=== PATIENT | male | born 1990 | race American Indian/Alaskan Native ===

== ENCOUNTER 2021-01-17 04:26 | Emergency (ER) | payer SELFPAY ==
[2021-01-17 04:45] VITALS: BP 179/104
--- NOTE | 2021-01-17 04:47 | Emergency Department Report ---
ED General Adult HPI - General Chief complaint: Dental/Oral Stated complaint: SWOLLEN GUMS/RT TOOTH PAIN Source: patient Mode of arrival: Ambulatory Limitations: No Limitations - History of Present Illness Initial comments: Patient is a 30-year-old -[place] male with a history of morbid obesity and chronic tobacco abuse who presents to the ED with complaint of acute onset persistent painful swollen right maxillary gingiva and premolar molar toothache for the last 2 days. Patient states that he has not been able to sleep because of persistently worsening toothache. Patient denies dizziness, syncope, fever, chills, nausea, vomiting, sore throat, chest pain or shortness of breath, traumatic injury, nasal and sinus congestion, cough or abdominal pain and diarrhea. MD Complaint: Dental pain; swollen gums -: Sudden, days(s) (2) Location: mouth Radiation: non-radiation Severity scale (0 -10): 8 Quality: aching, sharp Consistency: constant Improves with: none Worsens with: eating Associated Symptoms: denies other symptoms. denies: confusion, chest pain, cough, diaphoresis, fever/chills, headaches, loss of appetite, malaise, nausea/vomiting, rash, shortness of breath, syncope, weakness, other Treatments Prior to Arrival: none - Related Data Previous Rx's Medication Instructions Recorded Last Taken Type Acetaminophen/Codeine [Tylenol 1 tab PO Q6H PRN #12 tab 08/02/18 Unknown Rx /Codeine # 3 tab] Ibuprofen [Motrin] 600 mg PO Q8H PRN #20 tablet 08/02/18 Unknown Rx traMADoL [Ultram] 50 mg PO Q6HR PRN #12 tablet 09/29/18 Unknown Rx Clindamycin [Clindamycin CAP] 300 mg PO Q8HR #60 capsule 01/17/21 Unknown Rx Ibuprofen [Motrin] 800 mg PO Q8HR PRN #30 tablet 01/17/21 Unknown Rx Allergies Allergy/AdvReac Type Severity Reaction Status Date / Time No Known Allergies Allergy Verified 08/02/18 08:15 ED Review of Systems ROS: Stated complaint: SWOLLEN GUMS/RT TOOTH PAIN Other details as noted in HPI Constitutional: denies: chills, fever Eyes: denies: eye pain, eye discharge, vision change ENT: dental pain (Right maxillary premolar molar toothache with swollen painful gums). denies: ear pain, throat pain Respiratory: denies: cough, shortness of breath, wheezing Cardiovascular: denies: chest pain, palpitations Endocrine: no symptoms reported Gastrointestinal: denies: abdominal pain, nausea, vomiting, diarrhea Genitourinary: denies: urgency, dysuria Musculoskeletal: denies: back pain, joint swelling, arthralgia Skin: denies: rash, lesions Neurological: denies: headache, weakness, paresthesias Psychiatric: denies: anxiety, depression Hematological/Lymphatic: denies: easy bleeding, easy bruising ED Past Medical Hx - Past Medical History Previous Medical History?: No - Surgical History Past Surgical History?: No - Social History Smoking Status: Current Every Day Smoker Substance Use Type: None - Medications Home Medications: Home Medications Medication Instructions Recorded Confirmed Last Taken Type Acetaminophen/Codeine [Tylenol 1 tab PO Q6H PRN #12 tab 08/02/18 Unknown Rx /Codeine # 3 tab] Ibuprofen [Motrin] 600 mg PO Q8H PRN #20 tablet 08/02/18 Unknown Rx traMADoL [Ultram] 50 mg PO Q6HR PRN #12 tablet 09/29/18 Unknown Rx Clindamycin [Clindamycin CAP] 300 mg PO Q8HR #60 capsule 01/17/21 Unknown Rx Ibuprofen [Motrin] 800 mg PO Q8HR PRN #30 tablet 01/17/21 Unknown Rx ED Physical Exam - General Limitations: No Limitations General appearance: alert, in no apparent distress, obese - Head Head exam: Present: atraumatic, normocephalic, normal inspection - Eye Eye exam: Present: normal appearance, PERRL, EOMI Pupils: Present: normal accommodation - ENT ENT exam: Present: mucous membranes moist, TM's normal bilaterally, normal external ear exam, other (Swollen, severely tender right maxillary gingiva with severely tender premolar and molar teeth) - Neck Neck exam: Present: normal inspection, full ROM. Absent: tenderness - Respiratory Respiratory exam: Present: normal lung sounds bilaterally. Absent: respiratory distress, wheezes, rhonchi, chest wall tenderness, decreased breath sounds, prolonged expiratory - Cardiovascular Cardiovascular Exam: Present: regular rate, normal rhythm, normal heart sounds. Absent: systolic murmur, diastolic murmur, rubs, gallop - GI/Abdominal GI/Abdominal exam: Present: soft, normal bowel sounds. Absent: distended, tenderness, guarding, hyperactive bowel sounds, hypoactive bowel sounds - Extremities Exam Extremities exam: Present: normal inspection, full ROM, normal capillary refill. Absent: tenderness, pedal edema, joint swelling - Back Exam Back exam: Present: normal inspection, full ROM. Absent: tenderness, CVA tenderness (R), CVA tenderness (L), muscle spasm, paraspinal tenderness, vertebral tenderness - Neurological Exam Neurological exam: Present: alert, oriented X3, CN II-XII intact, normal gait, reflexes normal - Psychiatric Psychiatric exam: Present: normal affect, normal mood - Skin Skin exam: Present: warm, dry, intact, normal color. Absent: rash ED Medical Decision Making - Medical Decision Making This is a 30-year-old -Eth[place]ian male with a history of morbid obesity and chronic tobacco abuse who presents to the ED with complaint of acute onset persistent painful swollen right maxillary gingiva and premolar molar toothache for the last 2 days. Patient states that he has not been able to sleep because of persistently worsening toothache. In the ED, patient is alert and oriented x3 and is not in any distress. Patient was discharged home on pain medications and antibiotics based on the physical exam findings of suspected acute gingivitis and dental abscess. Patient was advised to follow-up with a dentist in 5 to 7 days for reevaluation or return to the ED immediately if symptoms get worse. - Differential Diagnosis Dental abscess; gingivitis; dental caries; Critical care attestation.: If time is entered above; I have spent that time in minutes in the direct care of this critically ill patient, excluding procedure time. ED Disposition Clinical Impression: Dental abscess, Acute gingivitis, Dental caries Disposition: TO HOME OR SELFCARE Is pt being admited?: No Does the pt Need Aspirin: No Condition: Stable Instructions: Dental Abscess, [id number], Trench Mouth Additional Instructions: Take medication with food, drink plenty of fluids and follow-up with your primary care physician or dentist in 5 to 7 days for reevaluation. Return to the ED immediately if symptoms get worse. Prescriptions: Clindamycin [Clindamycin CAP] 300 mg PO Q8HR #60 capsule Ibuprofen [Motrin] 800 mg PO Q8HR PRN #30 tablet PRN Reason: Pain , Severe (7-10) Referrals: [facility] [Outside] - 7-10 days Time of Disposition: 04:47 Print Language: MICRONESIAN
== END 2021-01-17 06:00 | disposition home or self-care (01) ==
LOC: ED 04:26
DX: K04.7 Periapical abscess without sinus (principal); K05.00 Acute gingivitis, plaque induced; K02.9 Dental caries, unspecified; F17.200 Nicotine dependence, unspecified, uncomplicated; Z79.899 Other long term (current) drug therapy
CPT/HCPCS: 99282

== ENCOUNTER 2021-05-31 08:06 | Emergency (ER) | payer SELFPAY ==
--- NOTE | 2021-05-31 10:33 | Emergency Department Report ---
ED General Adult HPI - General Chief complaint: Chest Pain Stated complaint: SLIGHT PAIN DISCOMFORT LT ARM Time Seen by Provider: 05/31/21 10:26 Source: patient Mode of arrival: Ambulatory Limitations: No Limitations - History of Present Illness Initial comments: 31-year-old male presents to the ER today with complaints of left upper back, left shoulder pain, chest tightness and shortness of breath. Patient states that he was diagnosed with Covid 3 weeks ago. He states that he had a repeat COVID-19 test this past Friday and it was negative. Patient states that he is concerned because about 1 week and ago he noticed that he has been having interm ittent pain in his left upper back into his left shoulder and sometimes into his left arm, which he describes as "sore" and he has been having intermittent chest tightness mainly when he lays backwards and also intermittent shortness of breath. He states that the symptoms have been triggering him to feel anxious. He states that he is also been having trouble sleeping. He denies any pleuritic pain. He states that when he was first diagnosed with Covid he mainly had just generalized body aches and a cough which has since resolved. He did have fever when he first got sick but this has also since resolved. He states that he did not have any chest tightness or shortness of breath when he was first diagnosed with Covid. Patient states that he does smoke. He denies any lower extremity swelling or calf pain. He reports no GI or symptoms. He denies any underlying medical conditions. Patient blood pressure was noted to be elevated in triage. He states that he was told once about a year ago when he came to the ER his blood pressure was elevated but he never followed up to have it monitored by her PCP. He denies any family history of heart disease. He denies any risk factors for PE or DVT. Complaint: Chest tightness/Left upper back/shoulder pain/SOB -: week(s) (1) - Related Data Previous Rx's Medication Instructions Recorded Last Taken Type Acetaminophen/Codeine [Tylenol 1 tab PO Q6H PRN #12 tab 08/02/18 Unknown Rx /Codeine # 3 tab] Ibuprofen [Motrin] 600 mg PO Q8H PRN #20 tablet 08/02/18 Unknown Rx traMADoL [Ultram] 50 mg PO Q6HR PRN #12 tablet 09/29/18 Unknown Rx Clindamycin [Clindamycin CAP] 300 mg PO Q8HR #60 capsule 01/17/21 Unknown Rx Amlodipine Besylate [Norvasc] 5 mg PO DAILY #30 tablet 05/31/21 Unknown Rx Ibuprofen [Motrin 800 MG tab] 800 mg PO Q8HR PRN #30 tablet 05/31/21 Unknown Rx Allergies Allergy/AdvReac Type Severity Reaction Status Date / Time No Known Allergies Allergy Verified 05/31/21 08:21 ED Review of Systems ROS: Stated complaint: SLIGHT PAIN DISCOMFORT LT ARM Other details as noted in HPI Comment: All other systems reviewed and negative Constitutional: denies: chills, fever Eyes: denies: eye pain, eye discharge, vision change ENT: denies: ear pain, throat pain Respiratory: shortness of breath. denies: cough, orthopnea, SOB with exertion, SOB at rest, wheezing Cardiovascular: chest pain. denies: palpitations, dyspnea on exertion, orthopnea, edema, syncope, paroxysmal nocturnal dyspnea Endocrine: no symptoms reported Gastrointestinal: denies: abdominal pain, nausea, vomiting, diarrhea, constipation, hematemesis, melena, hematochezia Genitourinary: denies: urgency, dysuria, frequency, hematuria, discharge, testicular pain, testicular mass Musculoskeletal: back pain, myalgia Skin: denies: rash, lesions, change in color, change in hair/nails, pruritus Neurological: denies: headache, weakness, paresthesias, confusion, abnormal g ait, vertigo Psychiatric: anxiety. denies: depression, auditory hallucinations, visual hallucinations, homicidal thoughts, suicidal thoughts Hematological/Lymphatic: denies: easy bleeding, easy bruising, swollen glands ED Past Medical Hx - Past Medical History Previous Medical History?: No - Surgical History Past Surgical History?: No - Social History Smoking Status: Current Every Day Smoker Substance Use Type: None - Medications Home Medications: Home Medications Medication Instructions Recorded Confirmed Last Taken Type Acetaminophen/Codeine [Tylenol 1 tab PO Q6H PRN #12 tab 08/02/18 Unknown Rx /Codeine # 3 tab] Ibuprofen [Motrin] 600 mg PO Q8H PRN #20 tablet 08/02/18 Unknown Rx traMADoL [Ultram] 50 mg PO Q6HR PRN #12 tablet 09/29/18 Unknown Rx Clindamycin [Clindamycin CAP] 300 mg PO Q8HR #60 capsule 01/17/21 Unknown Rx Amlodipine Besylate [Norvasc] 5 mg PO DAILY #30 tablet 05/31/21 Unknown Rx Ibuprofen [Motrin 800 MG tab] 800 mg PO Q8HR PRN #30 tablet 05/31/21 Unknown Rx ED Physical Exam - General Limitations: No Limitations General appearance: alert, in no apparent distress - Head Head exam: Present: atraumatic, normocephalic, normal inspection - Eye Eye exam: Present: normal appearance, PERRL, EOMI Pupils: Present: normal accommodation - Neck Neck exam: Present: normal inspection, full ROM - Respiratory Respiratory exam: Present: normal lung sounds bilaterally, chest wall tenderness (Mild left upper and right upper chest wall ttp ). Absent: respiratory distress, wheezes, rales, rhonchi - Cardiovascular Cardiovascular Exam: Present: regular rate, normal rhythm, normal heart sounds - GI/Abdominal GI/Abdominal exam: Present: soft. Absent: tenderness, guarding, rebound - Extremities Exam Extremities exam: Present: normal inspection, full ROM. Absent: pedal edema, joint swelling - Expanded Upper Extremity Exam Left Shoulder Exam: Present: normal inspection, full ROM. Absent: tenderness, swelling, abrasion, laceration - Back Exam Back exam: Present: normal inspection, full ROM, tenderness (Mild ttp left trapezius and soft tissue/muscle ttp left upper back. No midline ttp ) - Neurological Exam Neurological exam: Present: alert, oriented X3, CN II-XII intact, normal gait. Absent: motor sensory deficit - Psychiatric Psychiatric exam: Present: normal affect, normal mood - Skin Skin exam: Present: intact ED Course Vital Signs 05/31/21 05/31/21 08:23 12:46 Temperature 98.4 F Pulse Rate 87 78 Respiratory 18 20 Rate Blood Pressure 152/112 Blood Pressure 163/95 [Right] O2 Sat by Pulse 98 100 Oximetry ED Medical Decision Making - Lab Data Result diagrams: 05/31/21 11:24 05/31/21 11:24 - EKG Data EKG shows normal: sinus rhythm Rate: normal (110) - EKG Data Interpretation: no acute changes - Radiology Data Radiology results: report reviewed Patient: DAE THOMAS MR#: [id number] 0 : 1990 Acct:[id number] Age/Sex: 31 / M ADM Date: 05/31/21 Loc: ED Attending Dr: Ordering Physician: GANESH CURRIE Date of Service: 05/31/21 Procedure(s): XR chest routine 2V Accession Number(s): [id number] cc: AGNESH CURRIE Fluoro Time In Minutes: CHEST 2 VIEWS INDICATION: Chest Pain/SOB. COMPARISON: None FINDINGS: Support devices: None. Heart: Within normal limits. Lungs/pleura: No acute air space or interstitial disease. No pneumothorax. Additional findings: None. IMPRESSION: No acute findings. Normal chest x-ray. Signer Name: Aristeo Bass Jr, MD Signed: 05/31/2021 10:50 AM Workstation Name: [id number] Transcribed By: TTR Dictated By: ARISTEO BASS JR, MD Electronically Authenticated By: ARISTEO BASS JR, MD Signed Date/Time: 05/31/21 1050 DD/ 1049 - Medical Decision Making All labs reviewed -- CBC and CMP unremarkable. Trop negative. EKG showed no acute ischemic changes/STEMI or significant dysrhthmias. cxr shows nothing acute. Pt is well appearing, he is not toxic or ill appearing and he is not in any pain or respiratory distress. Discussed all labs and imaging results with patient. Patient has heart score of 1 and PERC score of 0. Exact cause of his symptoms at this time unclear. His history, exam, diagnostic testing and current condition do not suggest that this patient is having acute myocardial infarction, significant arrhythmia, unstable angina, pulmonary embolism, pneumothorax, severe pneumonia, sepsis or other significant pathology that would warrant further testing, continued ED treatment, admission or cardiology or other specialist consultation at this time. His repeat BP was noted to be elevated. Pt does not have hx of HTN but he does admit that he has been told that his BP was elevated in past. I will start patient on low dose norvasc and Recommend close follow up with PCP. He expressed understanding of instructions and agreed with plan. He understands to return to ED if worse or if anything changes. Critical care attestation.: If time is entered above; I have spent that time in minutes in the direct care of this critically ill patient, excluding procedure time. ED Disposition Clinical Impression: Nonspecific chest pain, Chest wall pain, Upper back pain, Anxiety reaction, Elevated blood pressure reading Disposition: HOME / SELF CARE / HOMELESS Is pt being admited?: No Does the pt Need Aspirin: No Condition: Stable Instructions: Chest Wall Pain, [id number], Nonspecific Chest Pain, Adult, Hypertension, Adult, [id number], Musculoskeletal Pain, Managing Anxiety, Adult Additional Instructions: I recommend that you take the ibuprofen as prescribed. Take the norvasc as prescribed. I Recommend that you follow-up closely with your primary care doctor listed on your discharge instructions for continued monitoring of your Blood pressure. Return to the ER if your symptoms changes or worsens in any way. Prescriptions: Ibuprofen [Motrin 800 MG tab] 800 mg PO Q8HR PRN #30 tablet PRN Reason: Pain , Severe (7-10) Amlodipine Besylate [Norvasc] 5 mg PO DAILY #30 tablet Referrals: [facility] [Provider Group] - 3-5 Days (Primary care physician ) Time of Disposition: 12:46 HEART Score - HEART Score History: Slightly suspicious EKG: Normal Age: < 45 Risk factors: 1-2 risk factors Troponin: Troponin T < 0.010 ng/mL (0.00-0.029) 05/31/21 11:24 Troponin: < normal limit HEART Score: 1 - Critical Actions Critical Actions: 0-3 pts:0.9-1.7%risk of adverse cardiac event.Candidate for discharge
--- NOTE | 2021-05-31 10:57 | XRay Report ---
CHEST 2 VIEWS INDICATION: Chest Pain/SOB. COMPARISON: None FINDINGS: Support devices: None. Heart: Within normal limits. Lungs/pleura: No acute air space or interstitial disease. No pneumothorax. Additional findings: None. IMPRESSION: No acute findings. Normal chest x-ray. Signer Name: Jaylen Knapp Jr, MD Signed: 05/31/2021 10:50 AM Workstation Name: [id number]
[2021-05-31 11:49] LABS: Basophils % (Auto) 0.3 % (0.0-1.8); Eosinophils % (Auto) 0.2 % (0.0-4.3); Hematocrit 44.9 % (35.5-45.6); Hemoglobin 14.8 gm/dl (11.8-15.2); Lymphocytes # (Auto) 1.9 K/mm3 (1.2-5.4); Lymphocytes % (Auto) 15.2 % (13.4-35.0); Mean Corpuscular HGB Conc 33 % (32-34); Mean Corpuscular Volume 89 fl (84-94); Monocytes # (Auto) 0.8 K/mm3 (0.0-0.8); Monocytes % (Auto) 6.4 % (0.0-7.3); Platelet Count 261 K/mm3 (140-440); Red Blood Count 5.06 M/mm3 (3.65-5.03); Red Cell Distribution Width 14.8 % (13.2-15.2)
[2021-05-31 12:15] LABS: Albumin 4.3 g/dL (3.9-5); BUN/Creatinine Ratio 7; Blood Urea Nitrogen 6 mg/dL (9-20); Calcium 9.7 mg/dL (8.4-10.2); Hemolysis Index 6
[2021-05-31 12:16] LABS: Alanine Aminotransferase < 5 units/L (7-56)
[2021-05-31 12:48] VITALS: BP 163/95
== END 2021-05-31 13:33 | disposition home or self-care (01) ==
LOC: ED 08:06
DX: M54.6 Pain in thoracic spine (principal); R07.89 Other chest pain; F41.1 Generalized anxiety disorder; R03.0 Elevated blood-pressure reading, without diagnosis of hypertension; F17.200 Nicotine dependence, unspecified, uncomplicated; Z79.899 Other long term (current) drug therapy
CPT/HCPCS: 36415; 71046; 80053; 84484; 85025; 93005; 99283

== ENCOUNTER 2021-06-06 22:41 | Emergency (ER) | payer SELFPAY ==
[2021-06-06 23:10] VITALS: BP 173/96
--- NOTE | 2021-06-07 01:13 | Emergency Department Report ---
ED Neck Pain/Injury HPI - General Chief Complaint: Extremity Injury, Upper Stated Complaint: L SHOULDER/ARM PAIN DIZZY Time Seen by Provider: 06/07/21 00:54 Mode of arrival: Ambulatory Limitations: No Limitations - History of Present Illness Initial Comments: 31-year-old -[place] male presents emerge department planing complaining of a 3-1/2-week history of left neck pain that radiates to the shoulder and across the chest and associated with occasional shortness of breath. Reports having coronavirus about 3 to 4 weeks ago as well which is now resolved during that time he states he was sleeping in awkward position on the left side and thinks that that is the reason for having the neck pain but is unsure of with discomfort to the chest and shortness of breath off and on has been been coming and states seems to be only present when he has a shoulder pain episode flareup reports no hemoptysis no hemoptysis no hematemesis hematochezia, no nausea, no vomiting, no wheezing no palpitations MD Complaint: neck pain, neck injury -: Gradual, week(s) (3) Place: home Radiation: left shoulder Severity: mild Quality: dull Consistency: constant Improves With: none Worsens With: none Context: fall Associated Symptoms: none Treatments Prior to Arrival: none - Related Data Previous Rx's Medication Instructions Recorded Last Taken Type Acetaminophen/Codeine [Tylenol 1 tab PO Q6H PRN #12 tab 08/02/18 Unknown Rx /Codeine # 3 tab] Ibuprofen [Motrin] 600 mg PO Q8H PRN #20 tablet 08/02/18 Unknown Rx traMADoL [Ultram] 50 mg PO Q6HR PRN #12 tablet 09/29/18 Unknown Rx Clindamycin [Clindamycin CAP] 300 mg PO Q8HR #60 capsule 01/17/21 Unknown Rx Amlodipine Besylate [Norvasc] 5 mg PO DAILY #30 tablet 05/31/21 Unknown Rx Ibuprofen [Motrin 800 MG tab] 800 mg PO Q8HR PRN #30 tablet 05/31/21 Unknown Rx Ketorolac [Toradol] 10 mg PO Q6H PRN #14 tablet 06/07/21 Unknown Rx Allergies Allergy/AdvReac Type Severity Reaction Status Date / Time No Known Allergies Allergy Verified 05/31/21 08:21 ED Review of Systems ROS: Stated complaint: L SHOULDER/ARM PAIN DIZZY Other details as noted in HPI Comment: All other systems reviewed and negative ED Past Medical Hx - Past Medical History Previous Medical History?: Yes - Surgical History Past Surgical History?: No - Social History Smoking Status: Current Every Day Smoker Substance Use Type: None - Medications Home Medications: Home Medications Medication Instructions Recorded Confirmed Last Taken Type Acetaminophen/Codeine [Tylenol 1 tab PO Q6H PRN #12 tab 08/02/18 Unknown Rx /Codeine # 3 tab] Ibuprofen [Motrin] 600 mg PO Q8H PRN #20 tablet 08/02/18 Unknown Rx traMADoL [Ultram] 50 mg PO Q6HR PRN #12 tablet 09/29/18 Unknown Rx Clindamycin [Clindamycin CAP] 300 mg PO Q8HR #60 capsule 01/17/21 Unknown Rx Amlodipine Besylate [Norvasc] 5 mg PO DAILY #30 tablet 05/31/21 Unknown Rx Ibuprofen [Motrin 800 MG tab] 800 mg PO Q8HR PRN #30 tablet 05/31/21 Unknown Rx Ketorolac [Toradol] 10 mg PO Q6H PRN #14 tablet 06/07/21 Unknown Rx ED Physical Exam - General Limitations: No Limitations General appearance: alert, in no apparent distress - Head Head exam: Present: atraumatic, normocephalic - Eye Eye exam: Present: normal appearance, PERRL Pupils: Present: normal accommodation - ENT ENT exam: Present: mucous membranes moist - Neck Neck exam: Present: normal inspection, tenderness, full ROM. Absent: meningismus, lymphadenopathy, thyromegaly, other - Respiratory Respiratory exam: Present: normal lung sounds bilaterally. Absent: respiratory distress - Cardiovascular Cardiovascular Exam: Present: regular rate, normal rhythm. Absent: systolic murmur, diastolic murmur, rubs, gallop - GI/Abdominal GI/Abdominal exam: Present: soft, normal bowel sounds - Rectal Rectal exam: Present: deferred - Extremities Exam Extremities exam: Present: normal inspection, normal capillary refill - Back Exam Back exam: Present: normal inspection. Absent: CVA tenderness (R), CVA tenderness (L) - Neurological Exam Neurological exam: Present: alert, oriented X3, CN II-XII intact, normal gait - Psychiatric Psychiatric exam: Present: normal affect, normal mood. Absent: anxious, manic - Skin Skin exam: Present: warm, dry, intact, normal color. Absent: rash, cyanosis, diaphoretic, erythema ED Course Vital Signs 06/06/21 23:09 Temperature 98.5 F Pulse Rate 77 Respiratory 16 Rate Blood Pressure 173/96 O2 Sat by Pulse 99 Oximetry Critical care attestation.: If time is entered above; I have spent that time in minutes in the direct care of this critically ill patient, excluding procedure time. ED Disposition Clinical Impression: Shoulder pain, Chest wall pain, Nonspecific chest pain Disposition: HOME / SELF CARE / HOMELESS Is pt being admited?: No Does the pt Need Aspirin: No Condition: Stable Instructions: Shoulder Pain, How to Use Cold Therapy, [id number], Nonspecific Chest Pain, Adult Additional Instructions: You were evaluated emergency department today for chest pain and shoulder pain. Your evaluation has shown no medicals conditions requiring emergent intervention at this time, however recommend that you follow-up with your primary care physician or your box repairer soon as possible for further testing as an outpatient. Please schedule an appointment for follow-up with your primary care physician as soon as possible. Return to emergency department if you expands worsening uncontrolled chest pain, shortness of breath, lightheadedness, feeling faint, nausea, vomiting or any other concerning symptoms. Prescriptions: Ketorolac [Toradol] 10 mg PO Q6H PRN #14 tablet PRN Reason: Pain Referrals: MERYL BRANDT MD [Staff Physician] - 2-3 Days (Please follow-up with cardiology for reevaluation and exercise stress test)
== END 2021-06-07 01:45 | disposition home or self-care (01) ==
LOC: ED 22:41
DX: M25.512 Pain in left shoulder (principal); M54.2 Cervicalgia; R06.02 Shortness of breath; R07.89 Other chest pain; F17.200 Nicotine dependence, unspecified, uncomplicated; Z79.899 Other long term (current) drug therapy
CPT/HCPCS: 99281

== ENCOUNTER 2021-06-24 23:32 | Emergency (ER) | payer SELFPAY ==
[2021-06-25] MEDS ORDERED: ASPIRIN 325 MG TAB PO ONE (00:07)
--- NOTE | 2021-06-25 00:12 | Event Note ---
ED Screening Note Date of service: 06/25/21 Time: 00:08 ED Screening Note: Patient is a 31-year-old -[place] male with a history of tobacco abuse and hypertension who presents to the ED with complaint of acute onset persistent left-sided chest pain, shortness of breath, elevated blood pressure, persistent palpitations, lightheadedness and dizziness for the last 2 hours. Patient states that he was seated at home watching football and got up to go to the bedroom and while walking he started feeling lightheaded, nauseous and dizziness and palpitations with left-sided chest pain and shortness of breath. Patient states that he takes amlodipine 5 mg daily for hypertension. Patient denies illegal drug use, headache, abdominal pain, vomiting, diarrhea, traumatic injury, fall, change in vision, seizures or syncope, fever and chills or cough. This initial assessment/diagnostic orders/clinical plan/treatment(s) is/are subject to change based on patients health status, clinical progression and re- assessment by fellow clinical providers in the ED. Further treatment and workup at subsequent clinical providers discretion. Patient/guardian urged not to elope from the ED as their condition may be serious if not clinically assessed and managed. Initial orders include: CBC, CMP, EKG, chest x-ray, troponin, magnesium, TSH, D-dimer
--- NOTE | 2021-06-25 00:45 | XRay Report ---
CHEST 2 VIEWS INDICATION / CLINICAL INFORMATION: CHEST PAIN, DYSPNEA, ELEVATED BP STUDY TIME: 28 COMPARISON: 05/31/2021 FINDINGS: SUPPORT DEVICES: None. HEART / MEDIASTINUM: No significant abnormality. LUNGS / PLEURA: No significant pulmonary or pleural abnormality. No pneumothorax. ADDITIONAL FINDINGS: No significant additional findings. Signer Name: Leander Justice MD Signed: 06/25/2021 12:40 AM Workstation Name: [id number]
[2021-06-25] MEDS ORDERED: IBUPROFEN 400 MG TAB PO ONE ×2 (00:52→04:00)
[2021-06-25] MEDS ORDERED: ACETAMINOPHEN 325 MG TAB PO ONE (00:52)
[2021-06-25] MEDS ORDERED: ALPRAZolam 0.5 MG TAB PO ONE (00:52)
--- NOTE | 2021-06-25 00:53 | Emergency Department Report ---
ED General Adult HPI - General Chief complaint: Chest Pain Stated complaint: Left-sided chest wall pain, lightheadedness, heart racing PUI?: No Time Seen by Provider: 06/25/21 00:38 Source: patient, RN notes reviewed, old records reviewed Mode of arrival: Ambulatory Limitations: No Limitations - History of Present Illness Initial comments: The patient was evaluated in the emergency department for symptoms described in the history of present illness. He/she was evaluated in the context of the global COVID-19 pandemic, which necessitated consideration that the patient might be at risk for infection with the virus that causes COVID-19. Institutional protocols and algorithms that pertain to the evaluation of patients at risk for COVID-19 are in a state of rapid change based on information released by regulatory bodies including the CDC and federal and state organizations. These policies and algorithms were followed during the patient's care in the emergency department. Please note that these policies, procedures and recommendations changed on a rapid basis. The patient is a 31-year-old gentleman. He has a history of obesity, body mass index of 40, and hypertension. He presents to the ER today with a complaint of nontraumatic left-sided chest wall pain. The pain involves his left axilla, and left shoulder. He also describes lightheadedness. The patient denies headache, midline neck pain, abdominal pain. The patient denies vomiting and diaphoresis. The patient has not received his COVID-19 vaccination. The patient reports he was diagnosed with COVID-19 about 6 weeks ago. The patient denies leg pain, leg swelling, immobilization. The patient denies travel, surgery, and personal and family history of DVT and pulmonary embolism. No recent aspirin consumption. No personal family history of DVT, PE, or CAD. He also describes lightheadedness, but has not lost consciousness or passed out. -: Gradual, hour(s) Location: chest Radiation: non-radiation Severity scale (0 -10): 4 Quality: aching Consistency: constant Improves with: rest Worsens with: movement, other (Palpation) - Related Data Previous Rx's Medication Instructions Recorded Last Taken Type Ibuprofen [Motrin] 600 mg PO Q8H PRN #20 tablet 08/02/18 Unknown Rx Ibuprofen [Motrin 800 MG tab] 800 mg PO Q8HR PRN #30 tablet 05/31/21 Unknown Rx Amlodipine Besylate [Norvasc] 5 mg PO DAILY #30 tablet 06/25/21 Unknown Rx Aspirin [Aspirin BABY CHEW TAB] 81 mg PO QDAY #30 tab.chew 06/25/21 Unknown Rx Allergies Allergy/AdvReac Type Severity Reaction Status Date / Time No Known Allergies Allergy Verified 05/31/21 08:21 ED Review of Systems ROS: Stated complaint: DIZZY/RAPID HEARTBEAT Other details as noted in HPI Constitutional: denies: fever Eyes: denies: eye discharge ENT: denies: epistaxis Respiratory: shortness of breath. denies: cough, wheezing Cardiovascular: chest pain, palpitations Gastrointestinal: denies: abdominal pain, nausea, vomiting, hematemesis, melena Genitourinary: denies: dysuria Neurological: denies: headache Psychiatric: anxiety Hematological/Lymphatic: denies: easy bleeding ED Past Medical Hx - Social History Smoking Status: Current Every Day Smoker Substance Use Type: None - Medications Home Medications: Home Medications Medication Instructions Recorded Confirmed Last Taken Type Ibuprofen [Motrin] 600 mg PO Q8H PRN #20 tablet 08/02/18 Unknown Rx Ibuprofen [Motrin 800 MG tab] 800 mg PO Q8HR PRN #30 tablet 05/31/21 Unknown Rx Amlodipine Besylate [Norvasc] 5 mg PO DAILY #30 tablet 06/25/21 Unknown Rx Aspirin [Aspirin BABY CHEW TAB] 81 mg PO QDAY #30 tab.chew 06/25/21 Unknown Rx ED Physical Exam - General Limitations: No Limitations General appearance: alert, anxious, obese - Head Head exam: Present: atraumatic, normocephalic - Eye Eye exam: Present: normal appearance, PERRL, EOMI, other (Visual acuity intact to finger counting, color perception, reading at a close distance). Absent: nystagmus - ENT ENT exam: Present: normal exam, normal orophraynx, mucous membranes moist, normal external ear exam - Neck Neck exam: Present: normal inspection, full ROM. Absent: tenderness, meningismus - Respiratory Respiratory exam: Present: normal lung sounds bilaterally, chest wall tenderness. Absent: respiratory distress, wheezes, rales, rhonchi, stridor - Cardiovascular Cardiovascular Exam: Present: normal rhythm, tachycardia, normal heart sounds. Absent: bradycardia, irregular rhythm, systolic murmur, diastolic murmur, rubs, gallop - GI/Abdominal GI/Abdominal exam: Present: soft. Absent: distended, tenderness, guarding, rebound, rigid, pulsatile mass - Rectal Rectal exam: Present: deferred - Extremities Exam Extremities exam: Present: normal inspection, full ROM, other (2+ pulses noted in the bilateral upper and lower extremities. There is no palpable cord. negative Homans sign. Muscular compartments are soft. The pelvis is stable.). Absent: pedal edema, calf tenderness - Back Exam Back exam: Present: normal inspection, full ROM. Absent: tenderness, CVA tenderness (R), CVA tenderness (L), paraspinal tenderness, vertebral tenderness - Neurological Exam Neurological exam: Present: alert, oriented X3, normal gait, other (No facial droop. Tongue midline. Extraocular movements intact bilaterally. Facial se nsation intact to light touch in V1, V2, V3 distribution bilaterally. 5 and a 5 strength in 4 extremities. Sensation intact to light touch in 4 extremities.). Absent: motor sensory deficit - Psychiatric Psychiatric exam: Present: anxious - Skin Skin exam: Present: warm, dry, intact, normal color. Absent: rash ED Course Vital Signs 06/24/21 06/25/21 06/25/21 23:59 00:02 00:04 Temperature 98.7 F 97.8 F 97.8 F Pulse Rate 127 H 129 H Respiratory 18 18 22 Rate Blood Pressure 178/99 178/99 Blood Pressure [Left] Blood Pressure 178/99 [Right] O2 Sat by Pulse 99 99 Oximetry 06/25/21 03:44 Temperature 98.0 F Pulse Rate 90 Respiratory 20 Rate Blood Pressure Blood Pressure 128/80 [Left] Blood Pressure [Right] O2 Sat by Pulse 100 Oximetry - Reevaluation(s) Reevaluation #1: 06/25/21 01:55 Differential diagnosis, included but not limited to: Orthostasis, vagal event, structural cardiac disease, pulmonary embolism, pneumonia, GERD, gastritis, hiatal hernia, costochondritis, coronary artery disease Hypertension, anxiety Assessment and plan: 51-year-old gentleman, who was tachycardic but anxious, who denies DVT and pulmonary embolism risk factors, who is low risk by Wells criteria for pulmonary embolism, who is not tachypneic or hypoxic, with a nega tive D-dimer, with an EKG that is unchanged from prior, who is low risk for major adverse cardiac event as per heart score, most likely has undiagnosed obstructive sleep apnea. He endorsed a number of sleep apnea symptoms, including snoring at night, sleepiness during the day, and restless dreams. We will treat his symptoms with labetalol, and Xanax, as well as appropriate medicine for his reproducible chest wall pain. Upon my first reassessment, the patient is sleeping comfortably in his stretcher, does not appear to be in any acute distress. Tachycardia has improved, currently heart rate 106 bpm. Check EKG x2, troponin x2. Reassess after reacquisition of vital signs, troponin x2 and EKG x2. Discussed this plan of care with the patient. He is agreeable to this plan of care. 06/25/21 04:37 Tachycardia and hypertension resolved on its own. On multiple repeat evaluations, patient resting comfortably in stretcher, and does not appear to be in any acute distress. EKG #2 appears to be unchanged from prior EKG. Troponin negative x2. D-dimer negative. Patient low risk for major adverse cardiac event. He is medically suitable to follow-up with an outpatient primary care doctor, and top spotter. ED Medical Decision Making - Lab Data Result diagrams: 06/25/21 00:57 06/25/21 00:57 Vital Signs 06/24/21 06/25/21 06/25/21 23:59 00:02 00:04 Temperature 98.7 F 97.8 F 97.8 F Pulse Rate 127 H 129 H Respiratory 18 18 22 Rate Blood Pressure 178/99 178/99 Blood Pressure 178/99 [Right] O2 Sat by Pulse 99 99 Oximetry Lab Results 06/25/21 06/25/21 06/25/21 Range/Units 00:57 00:57 00:57 WBC 16.6 H (4.5-11.0) K/mm3 RBC 4.52 (3.65-5.03) M/mm3 Hgb 14.4 (11.8-15.2) gm/dl Hct 39.7 (35.5-45.6) % MCV 88 (84-94) fl MCH 32 (28-32) pg MCHC 36 H (32-34) % RDW 15.1 (13.2-15.2) % Plt Count 238 (140-440) K/mm3 Lymph % (Auto) 11.7 L (13.4-35.0) % [place] % (Auto) 6.6 (0.0-7.3) % Eos % (Auto) 0.2 (0.0-4.3) % Baso % (Auto) 0.3 (0.0-1.8) % Lymph # (Auto) 1.9 (1.2-5.4) K/mm3 [place] # (Auto) 1.1 H (0.0-0.8) K/mm3 Eos # (Auto) 0.0 (0.0-0.4) K/mm3 Baso # (Auto) 0.0 (0.0-0.1) K/mm3 Seg Neutrophils % 81.2 H (40.0-70.0) % Seg Neutrophils # 13.5 H (1.8-7.7) K/mm3 D-Dimer 138.28 (0-234) ng/mlDDU Sodium 140 (137-145) mmol/L Potassium 4.0 (3.6-5.0) mmol/L Chloride 102.8 (98-107) mmol/L Carbon Dioxide 27 (22-30) mmol/L Anion Gap 14 mmol/L BUN 6 L (9-20) mg/dL Creatinine 0.9 (0.8-1.3) mg/dL Estimated GFR > 60 ml/min BUN/Creatinine Ratio 7 % Glucose 108 H (75-100) mg/dL Calcium 9.4 (8.4-10.2) mg/dL Magnesium (1.7-2.3) mg/dL Total Bilirubin 0.20 (0.1-1.2) mg/dL AST 30 (5-40) units/L ALT < 5 L (7-56) units/L Alkaline Phosphatase 101 (35-129) units/L Troponin T < 0.010 (0.00-0.029) ng/mL Total Protein 7.6 (6.3-8.2) g/dL Albumin 4.3 (3.9-5) g/dL Albumin/Globulin Ratio 1.3 % 06/25/21 Range/Units 00:57 WBC (4.5-11.0) K/mm3 RBC (3.65-5.03) M/mm3 Hgb (11.8-15.2) gm/dl Hct (35.5-45.6) % MCV (84-94) fl MCH (28-32) pg MCHC (32-34) % RDW (13.2-15.2) % Plt Count (140-440) K/mm3 Lymph % (Auto) (13.4-35.0) % [place] % (Auto) (0.0-7.3) % Eos % (Auto) (0.0-4.3) % Baso % (Auto) (0.0-1.8) % Lymph # (Auto) (1.2-5.4) K/mm3 [place] # (Auto) (0.0-0.8) K/mm3 Eos # (Auto) (0.0-0.4) K/mm3 Baso # (Auto) (0.0-0.1) K/mm3 Seg Neutrophils % (40.0-70.0) % Seg Neutrophils # (1.8-7.7) K/mm3 D-Dimer (0-234) ng/mlDDU Sodium (137-145) mmol/L Potassium (3.6-5.0) mmol/L Chloride (98-107) mmol/L Carbon Dioxide (22-30) mmol/L Anion Gap mmol/L BUN (9-20) mg/dL Creatinine (0.8-1.3) mg/dL Estimated GFR ml/min BUN/Creatinine Ratio % Glucose (75-100) mg/dL Calcium (8.4-10.2) mg/dL Magnesium 1.80 (1.7-2.3) mg/dL Total Bilirubin (0.1-1.2) mg/dL AST (5-40) units/L ALT (7-56) units/L Alkaline Phosphatase (35-129) units/L Troponin T (0.00-0.029) ng/mL Total Protein (6.3-8.2) g/dL Albumin (3.9-5) g/dL Albumin/Globulin Ratio % - EKG Data -: EKG Interpreted by Nd EKG shows normal: sinus rhythm Rate: tachycardia - EKG Data When compared to previous EKG there are: no significant change 06/25/21 01:52 EKG #1 is interpreted at 12:20 AM Sinus rhythm, 106 bpm, tachycardia, leftward axis, normal P wave axis, high left ventricular voltage, QTC within normal limits. This is an abnormal EKG. This is not a STEMI. When compared to prior EKG from 05/31/2021; poor R wave progression has resolved. High left ventricular voltage in 1 and aVL has resolved. Left axis deviation is less prominent. 1 06/25/21 01:54 When compared to prior EKG from 05/31/2021, 083 3 AM, it appears to be unchanged from prior. - Radiology Data Radiology results: pending, report reviewed, image reviewed Critical care attestation.: If time is entered above; I have spent that time in minutes in the direct care of this critically ill patient, excluding procedure time. ED Disposition Clinical Impression: Chest wall pain, BMI 40.0-44.9, adult, Elevated blood pressure reading Disposition: HOME / SELF CARE / HOMELESS Is pt being admited?: No Does the pt Need Aspirin: No Condition: Good Instructions: Nonspecific Chest Pain, Adult Additional Instructions: Patient may take [id number] ibuprofen, alternating with [id number] Tylenol/acetaminophen, as needed for chest wall pain. Avoid consumption of heavy and spicy foods as well as alcohol. Recommend aggressive weight loss, consumption of 4 to 6 cups of water per day, diet, exercise, avoidance of tobacco and smoke products. Recommend follow-up with a top spotter, such as Dr. France, within the next 3 to 5 days. Recommend follow-up with a primary care doctor, such as Dr. Saleem Garcia, Within the next month. Patient endorsed a number of symptoms which may be consistent with obstructive sleep apnea. The patient should follow-up with the signing teacher, such as Dr. Yo, Within the next month for a sleep study and evaluation. Long-term complications of hypertension, obesity, and obstructive sleep apnea include stroke, heart attack, disability, paralysis, loss of quality of life. Please return to the emergency room right away with new pain, worsened pain, migration of pain, projectile vomiting, change in mental status, confusion, inability tolerate liquid feeds, new, worsened or different symptoms not present on the initial emergency room evaluation. Please take Norvasc on a daily basis for blood pressure. Please take baby aspirin on a daily basis. Referrals: MECCA FRANCE MD [Staff Physician] - 3-5 Days WILLIAM YO MD [Staff Physician] - 3-5 Days RENNY GARCIA MD [Staff Physician] - 3-5 Days Heart Score - HEART Score History: Slightly suspicious EKG: Non-specific Age: < 45 Risk factors: 1-2 risk factors Troponin: < normal limit HEART Score: 2 - EKG Read Time Time EKG Completed: 12:21 EKG Read Time: 12:21 - Critical Actions Critical Actions: 0-3 pts:0.9-1.7%risk of adverse cardiac event.Candidate for discharge
[2021-06-25 01:26] LABS: Basophils % (Auto) 0.3 % (0.0-1.8); Eosinophils % (Auto) 0.2 % (0.0-4.3); Lymphocytes # (Auto) 1.9 K/mm3 (1.2-5.4); Lymphocytes % (Auto) 11.7 % (13.4-35.0); Mean Corpuscular HGB Conc 36 % (32-34); Mean Corpuscular Volume 88 fl (84-94); Monocytes # (Auto) 1.1 K/mm3 (0.0-0.8); Monocytes % (Auto) 6.6 % (0.0-7.3); Platelet Count 238 K/mm3 (140-440); Red Blood Count 4.52 M/mm3 (3.65-5.03); Red Cell Distribution Width 15.1 % (13.2-15.2)
[2021-06-25 01:27] LABS: Hematocrit 39.7 % (35.5-45.6); Hemoglobin 14.4 gm/dl (11.8-15.2)
[2021-06-25 01:47] LABS: Albumin 4.3 g/dL (3.9-5); BUN/Creatinine Ratio 7; Blood Urea Nitrogen 6 mg/dL (9-20); Calcium 9.4 mg/dL (8.4-10.2); Hemolysis Index 14
[2021-06-25 01:48] LABS: Alanine Aminotransferase < 5 units/L (7-56)
[2021-06-25 03:45] VITALS: BP 128/80
[2021-06-25] MEDS ORDERED: ACETAMINOPHEN 325 MG TAB ONE (04:00)
--- NOTE | 2021-07-02 13:52 | Electrocardiograph Report ---
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
--- NOTE | 2021-07-02 13:53 | Electrocardiograph Report ---
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
== END 2021-06-25 05:46 | disposition home or self-care (01) ==
LOC: ED 23:32
DX: R07.89 Other chest pain (principal); R03.0 Elevated blood-pressure reading, without diagnosis of hypertension; F17.200 Nicotine dependence, unspecified, uncomplicated; Z68.41 Body mass index [BMI] 40.0-44.9, adult; Z79.899 Other long term (current) drug therapy; Z79.82 Long term (current) use of aspirin
CPT/HCPCS: 36415; 71046; 80053; 83735; 84443; 84484; 85025; 85379; 93005; 99284

== ENCOUNTER 2021-12-31 00:37 | Emergency (ER) | payer SELFPAY ==
--- NOTE | 2021-12-31 01:33 | XRay Report ---
CHEST 2 VIEWS INDICATION / CLINICAL INFORMATION: CHEST PAIN. COMPARISON: 06/25/2021 FINDINGS: SUPPORT DEVICES: None. HEART / MEDIASTINUM: No significant abnormality. LUNGS / PLEURA: No significant pulmonary or pleural abnormality. No pneumothorax. ADDITIONAL FINDINGS: No significant additional findings. IMPRESSION: 1. No acute findings. Signer Name: Shadi Cooney MD Signed: 12/31/2021 1:28 AM Workstation Name: [id number]
[2021-12-31 01:35] LABS: Basophils # (Auto) 0.1 K/mm3 (0.0-0.1); Basophils % (Auto) 0.4 % (0.0-1.8); Eosinophils % (Auto) 0.3 % (0.0-4.3); Hematocrit 44.7 % (35.5-45.6); Hemoglobin 15.5 gm/dl (11.8-15.2); Lymphocytes # (Auto) 1.9 K/mm3 (1.2-5.4); Lymphocytes % (Auto) 14.1 % (13.4-35.0); Mean Corpuscular HGB Conc 35 % (32-34); Mean Corpuscular Volume 88 fl (84-94); Monocytes # (Auto) 0.7 K/mm3 (0.0-0.8); Platelet Count 223 K/mm3 (140-440); Red Blood Count 5.07 M/mm3 (3.65-5.03); Red Cell Distribution Width 13.9 % (13.2-15.2)
[2021-12-31 01:40] LABS: Albumin 4.4 g/dL (3.9-5); BUN/Creatinine Ratio 6; Blood Urea Nitrogen 6 mg/dL (9-20); Calcium 9.6 mg/dL (8.4-10.2); Hemolysis Index 81
[2021-12-31 01:42] LABS: Alanine Aminotransferase < 5 units/L (7-56)
--- NOTE | 2021-12-31 04:34 | Emergency Department Report ---
ED General Adult HPI - General Chief complaint: Anxiety Stated complaint: CHEST TIGHTNESS Source: patient Mode of arrival: Ambulatory Limitations: No Limitations - History of Present Illness Initial comments: Patient is a 31-year-old -German male with a history of hypertension who is not currently on blood pressure medication presents to the ED with complaint of acute onset headache for over 12 hours. Patient states that he got home from work and took ibuprofen but became nauseous and vomited the tablet and thereafter he started experiencing persistent palpitations and tachycardia with tingling sensation is on his upper extremities bilaterally and chest tightness about 6 hours ago. Patient states that he experienced similar symptoms when he was diagnosed with Covid 1 year ago and his panic attack and anxiety got worse. Patient states that he is currently not taking any medication for anxiety and panic attacks. Patient denies dizziness, syncope, shortness of breath, diaphoresis, abdominal pain, neck pain, change in vision, cough, nasal and sinus congestion, sore throat or fever and chills. MD Complaint: Chest tingling sensation, chest tightness, bilateral arm tingling -: Sudden, hour(s) (6) Location: head, chest, upper extremity (Bilaterally) Radiation: non-radiation Quality: dull, other (Tingling sensation) Consistency: now resolved Improves with: none Worsens with: none Associated Symptoms: denies other symptoms, chest pain (Tingling sensation), headaches. denies: confusion, cough, diaphoresis, fever/chills, loss of appetite, malaise, nausea/vomiting, rash, seizure, shortness of breath, syncope, other Treatments Prior to Arrival: none - Related Data Previous Rx's Medication Instructions Recorded Last Taken Type Ibuprofen [Motrin] 600 mg PO Q8H PRN #20 tablet 08/02/18 Unknown Rx Ibuprofen [Motrin 800 MG tab] 800 mg PO Q8HR PRN #30 tablet 05/31/21 Unknown Rx Amlodipine Besylate [Norvasc] 5 mg PO DAILY #30 tablet 06/25/21 Unknown Rx Aspirin [Aspirin BABY CHEW TAB] 81 mg PO QDAY #30 tab.chew 06/25/21 Unknown Rx amLODIPine 10 mg PO DAILY #30 tab 12/31/21 Unknown Rx hydrOXYzine PAMOATE [Vistaril] 50 mg PO Q12HR PRN #30 capsule 12/31/21 Unknown Rx Allergies Allergy/AdvReac Type Severity Reaction Status Date / Time No Known Allergies Allergy Verified 05/31/21 08:21 ED Review of Systems ROS: Stated complaint: CHEST TIGHTNESS Other details as noted in HPI Constitutional: denies: chills, fever Eyes: denies: eye pain, eye discharge, vision change ENT: denies: ear pain, throat pain Respiratory: denies: cough, shortness of breath, wheezing Cardiovascular: chest pain (Tingling and chest wall tightness), palpitations Endocrine: no symptoms reported Gastrointestinal: denies: abdominal pain, nausea, diarrhea Genitourinary: denies: urgency, dysuria Musculoskeletal: other (Bilateral upper extremity tingling sensation). denies: back pain, joint swelling, arthralgia Skin: denies: rash, lesions Neurological: headache. denies: weakness, paresthesias Psychiatric: anxiety. denies: depression Hematological/Lymphatic: denies: easy bleeding, easy bruising ED Past Medical Hx - Past Medical History Previous Medical History?: Yes Hx Hypertension: Yes Hx Psychiatric Treatment: Yes (Anxiety and panic attacks) - Social History Smoking Status: Current Every Day Smoker Substance Use Type: None - Medications Home Medications: Home Medications Medication Instructions Recorded Confirmed Last Taken Type Ibuprofen [Motrin] 600 mg PO Q8H PRN #20 tablet 08/02/18 Unknown Rx Ibuprofen [Motrin 800 MG tab] 800 mg PO Q8HR PRN #30 tablet 05/31/21 Unknown Rx Amlodipine Besylate [Norvasc] 5 mg PO DAILY #30 tablet 06/25/21 Unknown Rx Aspirin [Aspirin BABY CHEW TAB] 81 mg PO QDAY #30 tab.chew 06/25/21 Unknown Rx amLODIPine 10 mg PO DAILY #30 tab 12/31/21 Unknown Rx hydrOXYzine PAMOATE [Vistaril] 50 mg PO Q12HR PRN #30 capsule 12/31/21 Unknown Rx ED Physical Exam - General Limitations: No Limitations General appearance: alert, in no apparent distress - Head Head exam: Present: atraumatic, normocephalic, normal inspection - Eye Eye exam: Present: normal appearance, PERRL, EOMI Pupils: Present: normal accommodation - ENT ENT exam: Present: normal exam, normal orophraynx, mucous membranes moist, TM's normal bilaterally, normal external ear exam - Neck Neck exam: Present: normal inspection, full ROM. Absent: tenderness, lymphadenopathy - Respiratory Respiratory exam: Present: normal lung sounds bilaterally. Absent: respiratory distress, wheezes, rhonchi, stridor, chest wall tenderness, accessory muscle use, decreased breath sounds, prolonged expiratory - Cardiovascular Cardiovascular Exam: Present: regular rate, normal rhythm, normal heart sounds. Absent: systolic murmur, diastolic murmur, rubs, gallop - GI/Abdominal GI/Abdominal exam: Present: soft, normal bowel sounds. Absent: distended, guarding, rebound, hyperactive bowel sounds, hypoactive bowel sounds - Extremities Exam Extremities exam: Present: normal inspection, full ROM, normal capillary refill - Back Exam Back exam: Present: normal inspection, full ROM. Absent: tenderness, CVA tenderness (R), CVA tenderness (L), muscle spasm, paraspinal tenderness - Neurological Exam Neurological exam: Present: alert, oriented X3, CN II-XII intact, normal gait, reflexes normal - Psychiatric Psychiatric exam: Present: normal affect, normal mood, anxious - Skin Skin exam: Present: warm, dry, intact, normal color. Absent: rash ED Course Vital Signs 12/31/21 00:42 Temperature 98.3 F Pulse Rate 85 Respiratory 18 Rate Blood Pressure 191/127 O2 Sat by Pulse 97 Oximetry ED Medical Decision Making - Lab Data Result diagrams: 12/31/21 01:08 12/31/21 01:08 - EKG Data EKG shows normal: sinus rhythm Rate: normal - EKG Data Interpretation: normal EKG 12/31/21 04:37 EKG shows normal sinus rhythm with a ventricular rate of 77 bpm, and no ST or T wave abnormalities or any pathological Q waves. - Radiology Data Radiology results: report reviewed, image reviewed [facility] [address] [place] [address] XRay Report Signed Patient: DAE THOMAS MR#: [id number] 0 : 1990 Acct:[id number] Age/Sex: 31 / M ADM Date: 12/31/21 Loc: ED Attending Dr: Ordering Physician: JHONATHAN WILCOX MD Date of Service: 12/31/21 Procedure(s): XR chest routine 2V Accession Number(s): [id number] cc: ED MD JERI Fluoro Time In Minutes: CHEST 2 VIEWS INDICATION / CLINICAL INFORMATION: CHEST PAIN. COMPARISON: 06/25/2021 FINDINGS: SUPPORT DEVICES: None. HEART / MEDIASTINUM: No significant abnormality. LUNGS / PLEURA: No significant pulmonary or pleural abnormality. No pneumothorax. ADDITIONAL FINDINGS: No significant additional findings. IMPRESSION: 1. No acute findings. Signer Name: Shadi Cooney MD Signed: 12/31/2021 1:28 AM Workstation Name: [id number] Transcribed By: YEISON Dictated By: Shadi Cooney MD Electronically Authenticated By: Shadi Cooney MD Signed Date/Time: 12/31/21127 DD/ 7 TD/TT: Print - Medical Decision Making This is a 31-year-old -German male with a history of hypertension who is not currently on blood pressure medication presents to the ED with complaint of acute onset headache for over 12 hours. Patient states that he got home from work and took ibuprofen but became nauseous and vomited the tablet and thereafter he started experiencing persistent palpitations and tachycardia with tingling sensation is on his upper extremities bilaterally and chest tightness about 6 hours ago. Patient states that he experienced similar symptoms when he was diagnosed with Covid 1 year ago and his panic attack and anxiety got worse. Patient states that he is currently not taking any medication for anxiety and panic attacks. In the ED, patient is alert and oriented x3 and is not in any distress. Lab test results were reviewed and are all nonactionable. Chest x- ray showed no acute cardiopulmonary abnormalities or pneumonitis. EKG shows normal sinus rhythm with a ventricular rate of [address] or T wave abnormalities or pathological Q waves. Based on the history and physical exam findings, lab test results, EKG and chest x-ray reports, patient symptoms are likely due to panic attack or anxiety as a result of choking on ibuprofen prior to arrival in the ED which led to the tingling and chest tightness and panic attack prior to arrival in the ED. Patient has score is 1 and patient is PERC negative per Wells criteria. Patient was therefore discharged home with a refill on his blood pressure medications and advised to follow-up with his primary care physician in 7 to 10 days for reevaluation or return to the ED immediately if symptoms get worse. - Differential Diagnosis Anxiety; panic attack; ACS; pneumonia; URI; uncontrolled hypertension Critical care attestation.: If time is entered above; I have spent that time in minutes in the direct care of this critically ill patient, excluding procedure time. ED Disposition Clinical Impression: Uncontrolled stage 2 hypertension, Anxiety as acute reaction to exceptional stress Disposition: 01 HOME / SELF CARE / HOMELESS Is pt being admited?: No Does the pt Need Aspirin: No Condition: Stable Instructions: Hypertension (ED), Hypertension, Adult, [id number], Generalized Anxiety Disorder, Adult Additional Instructions: All lab test results were reviewed and are all nonactionable. Chest x-ray showed no acute cardiopulmonary abnormalities or pneumonitis. EKG shows normal sinus rhythm with a ventricular rate of 77 bpm. Therefore take medication for hypertension, take anxiety medication as needed and follow-up with your primary care physician in 7 to 10 days for reevaluation. Return to the ED immediately if symptoms get worse. Prescriptions: amLODIPine 10 mg PO DAILY #30 tab hydrOXYzine PAMOATE [Vistaril] 50 mg PO Q12HR PRN #30 capsule PRN Reason: Anxiety Referrals: [facility] [Provider Group] - 7-10 days Time of Disposition: 04:40 Print Language: SLOVENIAN
[2021-12-31 05:45] VITALS: BP 173/98
--- NOTE | 2021-12-31 12:11 | Electrocardiograph Report ---
[facility] Test Date: 2021-12-31 Test Time: 00:49:17 Pat Name: DAE THOMAS Department: Room: Gender: M Unload Associate: LISSET : 1990 Requested By: KEVIN OROZCO Order Number: [id number] Reading MD: Curly Crenshaw Measurements Intervals [place] Rate: 77 P: 49 PA: 149 QRS: 5 QRSD: 100 T: 32 QT: 367 QTc: 417 Interpretive Statements Sinus rhythm Compared to ECG 06/25/2021 03:46:34 No significant changes Electronically Signed On 12-31-2021 12:11:24 EDT by Curly Crenshaw
== END 2021-12-31 05:46 | disposition home or self-care (01) ==
LOC: ED 00:37
DX: I10 Essential (primary) hypertension (principal); F43.0 Acute stress reaction
CPT/HCPCS: 36415; 71046; 80053; 84484; 85025; 93005; 99283

== ENCOUNTER 2022-04-03 15:11 | Emergency (ER) | payer SELFPAY ==
[2022-04-03 16:34] VITALS: BP 150/78
--- NOTE | 2022-04-03 16:37 | Event Note ---
ED Screening Note ED Screening Note: CO DENTAL PAIN VSS This initial assessment/diagnostic orders/clinical plan/treatment(s) is/are subject to change based on patients health status, clinical progression and re- assessment by fellow clinical providers in the ED. Further treatment and workup at subsequent clinical providers discretion. Patient/guardian urged not to elope from the ED as their condition may be serious if not clinically assessed and managed. Initial orders include: REVAL
== END 2022-04-03 18:00 | disposition left against medical advice (07) ==
LOC: ED 15:11
DX: K08.89 Other specified disorders of teeth and supporting structures (principal); Z53.21 Procedure and treatment not carried out due to patient leaving prior to being seen by health care provider